=== PATIENT | male | born 1985 | race Caucasian/White ===

== ENCOUNTER 2020-03-27 08:03 | Outpatient (REF) | payer OTHER, SELFPAY ==
--- NOTE | 2020-03-27 08:11 | US_ITS ---
EXAMINATION: US ABDOMEN COMPLETE CLINICAL INFORMATION: Calculus in gallbladder without cholecystitis without obstruction. COMPARISON: Portions of ultrasound 08/28/19 TECHNIQUE: Real-time imaging of the abdominal viscera. FINDINGS: PANCREAS: No suspicious abnormality in the visualized portions of the pancreas. ABDOMINAL AORTA: The proximal, mid, and distal segments are normal in caliber. INFERIOR VENA CAVA: Visualized portions are normal. LIVER: Normal. The liver is normal in size. The liver contour is normal. Parenchymal echogenicity is normal. No focal hepatic lesion. There is no intrahepatic biliary duct dilatation seen. GALLBLADDER: There are gallstones present. A calculus measuring 0.6 cm is documented. There is a calculus near the gallbladder neck with the patient supine. The gallbladder is not dilated. No gallbladder wall thickening. No reported tenderness to transducer pressure over the gallbladder. No pericholecystic fluid. COMMON BILE DUCT: Normal in caliber measuring 0.3 cm in diameter. RIGHT KIDNEY: Normal. No hydronephrosis. No renal calculi or focal parenchymal lesions. The kidney measures 10.6 cm in maximum dimension. LEFT KIDNEY: Normal. No hydronephrosis. No renal calculi or focal parenchymal lesions. The kidney measures 11.5 cm in maximum dimension. SPLEEN: Normal. The spleen measures 9.7 cm in maximum dimension. FREE FLUID: None. US/US abdomen complete IMPRESSION: Cholelithiasis. No biliary dilation. No gallbladder wall thickening, sonographic Copeland's sign or pericholecystic fluid
== END 2020-03-27 08:04 | disposition home or self-care (01) ==
LOC: HO.US 08:03
PROVIDERS: PCP Internal Medicine; Visit Provider Surgery
DX: K80.20 Calculus of gallbladder without cholecystitis without obstruction (principal)
CPT/HCPCS: 76700

== ENCOUNTER 2020-10-18 02:00 | Emergency (ER) | payer OTHER, SELFPAY ==
--- NOTE | ~2020-10-18 | US_ITS ---
EXAMINATION: US ABDOMEN LIMITED CLINICAL INFORMATION: Right upper quadrant pain for 4 hours.. COMPARISON: 03/27/2020 TECHNIQUE: Real-time imaging of the right upper quadrant abdominal viscera. FINDINGS: PANCREAS: Visualized portions unremarkable; tail obscured by interposed bowel gas. LIVER: Normal. The liver is normal in size. The liver contour is normal. Parenchymal echogenicity is normal. No focal hepatic lesion. There is no intrahepatic biliary duct dilatation seen. GALLBLADDER: Normal. The gallbladder is physiologically distended without evidence of stones, sludge, polyps, wall thickening or pericholecystic fluid. COMMON BILE DUCT: Normal in caliber measuring 0.3 cm in diameter. RIGHT KIDNEY: Normal. No hydronephrosis. No renal calculi. There is a 9 mm simple cyst in the upper pole of the kidney. No further follow-up is required. The kidney measures 11.5 cm in maximum dimension. FREE FLUID: None. US/US abdomen limited IMPRESSION: No cholelithiasis or sonographic evidence of cholecystitis.
[2020-10-18 02:02] VITALS: BP 147/78; PULSE 67; RESP 20; TEMP 36.5; O2SAT 97; BMI 23.7
--- NOTE | 2020-10-18 02:38 | ED.ABDPAIN ---
HPI - Abdominal Pain General Chief Complaint: Abdominal Pain Stated Complaint: abdominal pain Time Seen by Provider: 10/18/20 02:24 Source: patient Mode of arrival: ambulatory Limitations: no limitations History of Present Illness HPI narrative: Patient comes to the emergency room complaining of right upper quadrant pain starting tonight. Patient states that he has been told that he has cholelithiasis. Patient had an ultrasound done on March 2020. Patient states that he has not had any further abdominal pain until 1 week ago. Patient ate, started having right upper quadrant pain, patient took Zofran and tramadol and the pain resolved. Then tonight, patient had a similar episode after eating, started having right upper quadrant pain and nausea with no vomiting/diarrhea, patient took tramadol and Zofran but the pain did not subside MD elicited complaint: abdominal pain Related Data Previous Rx's Medication Instructions Recorded hyoscyamine sulfate 0.125 mg PO QID #10 tab 10/18/20 omeprazole 20 mg PO DAILY #10 cap 10/18/20 Allergies Allergy/AdvReac Type Severity Reaction Status Date / Time No Known Allergies Allergy Unverified 02/20/20 17:19 [No Known Allergies*] Review of Systems Review of Systems Constitutional : No Weight loss, No Fever, No Chills, No Night Sweats, No Fatigue, No Malaise ENT/Mouth : No Hearing loss, No Ear Pain, No Nasal Congestion, No Sinus Pain, No Hoarseness, No sore throat, No Rhinorrhea, No Swallowing Difficulty Eyes: No Eye Pain, No Swelling, No Redness, No Foreign Body, No Discharge, No Vision Changes Cardiovascular : No Chest Pain, No SOB, No Dyspnea on Exertion, No Orthopnea, No Edema, No Palpitations Respiratory : No Cough, No Sputum, No Wheezing, No Smoke Exposure, No Dyspnea Gastrointestinal : Complaining of Nausea, No Vomiting, No Diarrhea, No Constipation, complaining of right upper quadrant pain, No Hematochezia, No Melena Genitourinary : no irregular bleeding, No Dysuria, No Urinary Frequency, No Hematuria, No Urinary Incontinence, No Urgency, No Flank Pain, No Urinary Flow Changes, No Hesitancy Musculoskeletal : No joint pain, No Myalgias, No Joint Swelling Skin : No Skin Lesions, No rash Neuro : No Weakness, No Numbness, No Paresthesias, No Loss of Consciousness, No Dizziness, No Headache Psych : No Anxiety/Panic, No Depression, No SI/HI/AH/VH, No Social Issues, Heme/Lymph: No Bruising, No Bleeding,No Lymphadenopathy Endocrine : No Polyuria, No Polydipsia, No Temperature Intolerance Physical Exam Vital Signs: Vital Signs: Last Vital Signs Temp 97.7 F 10/18/20 02:02 Pulse 67 10/18/20 02:02 Resp 15 10/18/20 03:30 BP 147/78 H 10/18/20 02:02 Pulse Ox 97 10/18/20 02:02 Body Mass Index 23.7 Appearance: Alert. Oriented X3. No acute distress. Eyes: Pupils equal, round and reactive to light. ENT: Pharynx normal. Neck: Normal inspection. Neck supple. No lymph nodes noted. No crepitus CVS: Normal heart rate and rhythm. Pulses normal. Normal S1 and S2 Respiratory: No respiratory distress. Breath sounds normal. No Wheezing. No rales Abdomen: Soft, mild tenderness to palpation in the right upper quadrant, negative Copeland sign, No rigidity. No distention Skin: Skin warm and dry. Normal skin color. Normal skin turgor. Extremities: No lower extremity edema. No lower extremity edema. No Lacerations. No Rash Neuro: Oriented X 3. No motor deficit. No sensory deficit. Moving all extermities. No slurred speech. Course Course Course Narrative: I discussed the imaging and the labs with the patient, at this time, acute cholecystitis but not suspected. Patient instructed to follow-up with his primary care physician. Patient was also provided with the phone number for surgery if he continues having right upper quadrant pain. MDM - Abdominal Pain Lab Data Result diagrams: 10/18/20 03:18 10/18/20 03:18 Labs: Lab Results 10/18/20 10/18/20 Range/Units 03:18 03:18 WBC 8.3 (4.8-10.8) X10*3/uL RBC 4.97 (4.60-5.80) X10*6/uL Hgb 14.5 (14.0-18.0) g/dl Hct 41.6 L (42-52) % MCV 83.7 (80-98) fL MCH 29.2 (27.0-33.0) pg MCHC 34.9 (31.0-36.0) g/dl RDW 12.1 (11.0-16.0) % Plt Count 175 (160-400) X10*3/uL MPV 9.5 (9.4-12.4) fL Immature Gran % (Auto) 0.4 (0.0-0.4) % Neut % (Auto) 75.3 H (45-73) % Lymph % (Auto) 16.3 L (20-40) % [place] % (Auto) 6.4 (2-11) % Eos % (Auto) 1.0 (0-4) % Baso % (Auto) 0.6 (0-2) % Lymph # (Auto) 1.4 (1.2-4.9) X10*3/uL [place] # (Auto) 0.5 (0.1-1.2) X10*3/uL Eos # (Auto) 0.1 (0.0-0.4) X10*3/uL Baso # (Auto) 0.1 (0.0-0.2) X10*3/uL Abs Immat Gran (auto) 0.03 (0.00-0.03) X10*3/uL Absolute Neuts (auto) 6.3 (2.0-8.3) X10*3/uL Absolute Nucleated RBC 0.000 (0.0-0.012) X10*3/uL Nucleated RBC % (auto) 0.0 (0.0-0.2) /100WBC Sodium 139 (135-145) mmol/L Potassium 3.6 (3.3-5.1) mmol/L Chloride 106 (96-108) mmol/L Carbon Dioxide 26 (22-29) mmol/L Anion Gap 11 L (12-20) BUN 15 (9-16) mg/dL Creatinine 0.79 (0.5-1.4) mg/dL Estim Creat Clear Calc 140.3 Estimated GFR > 60 Random Glucose 122 H (60-115) mg/dL Calcium 9.6 (8.4-10.2) mg/dL Total Bilirubin 0.4 (0.0-1.0) mg/dL Direct Bilirubin 0.2 (0.0-0.5) mg/dL AST 16 (5-37) U/L ALT 20 (0-40) U/L Alkaline Phosphatase 69 (39-117) U/L Total Protein 6.6 (6.5-8.0) g/dL Albumin 4.5 (3.5-5.0) g/dL Lipase 15 (8-78) U/L Imaging Data Right upper quadrant ultrasound: Radiologist's impression: FINDINGS: PANCREAS: Visualized portions unremarkable; tail obscured by interposed bowel gas. LIVER: Normal. The liver is normal in size. The liver contour is normal. Parenchymal echogenicity is normal. No focal hepatic lesion. There is no intrahepatic biliary duct dilatation seen. GALLBLADDER: Normal. The gallbladder is physiologically distended without evidence of stones, sludge, polyps, wall thickening or pericholecystic fluid. COMMON BILE DUCT: Normal in caliber measuring 0.3 cm in diameter. RIGHT KIDNEY: Normal. No hydronephrosis. No renal calculi. There is a 9 mm simple cyst in the upper pole of the kidney. No further follow-up is required. The kidney measures 11.5 cm in maximum dimension. FREE FLUID: None. US/US abdomen limited IMPRESSION: No cholelithiasis or sonographic evidence of cholecystitis. Discharge Plan Discharge Clinical Impression: Abdominal pain Patient Disposition: Home, Self-Care Instructions: Abdominal Pain (ED) Additional Instructions: Please follow-up with your primary care physician tomorrow. If you have any worsening or new symptoms, please return to the emergency room or call 911 Prescriptions: New hyoscyamine sulfate 0.125 mg tablet 0.125 mg PO QID Qty: 10 RF: 0 omeprazole 20 mg capsule,delayed release(DR/EC) 20 mg PO DAILY Qty: 10 RF: 0 Referrals: Dionicio Bhandari MD [Physician] - 2 days (Recurrent right upper quadrant pain) [facility] Past Medical History Medical History Gallstones Social History Social History Alcohol intake: never Smoking Status: Never smoker Use of substances other than those prescribed or required for medical reasons: No Advance Directives: No Advance Directives Information Provided: No
[2020-10-18 03:22] LABS: Basophils Absolute Auto 0.1 X10*3/uL (0.0-0.2); Basophils Percent Auto 0.6 % (0-2); Eosinophils Absolute Auto 0.1 X10*3/uL (0.0-0.4); Hematocrit 41.6 % (42-52); Hemoglobin 14.5 g/dl (14.0-18.0); Imm Gran Abs Auto 0.03 X10*3/uL (0.00-0.03); Imm Gran Pct Auto 0.4 % (0.0-0.4); Lymphocytes Absolute Auto 1.4 X10*3/uL (1.2-4.9); Lymphocytes Percent Auto 16.3 % (20-40); MANUAL DIFF FLAG NO; Mean Corpuscular HGB Conc 34.9 g/dl (31.0-36.0); Mean Corpuscular Hemoglobin 29.2 pg (27.0-33.0); Mean Corpuscular Volume 83.7 fL (80-98); Mean Platelet Volume 9.5 fL (9.4-12.4); Monocytes Absolute Auto 0.5 X10*3/uL (0.1-1.2); Monocytes Percent Auto 6.4 % (2-11); Neutrophils Absolute Auto 6.3 X10*3/uL (2.0-8.3); Neutrophils Percent Auto 75.3 % (45-73); Platelet Count 175 X10*3/uL (160-400); Red Blood Count 4.97 X10*6/uL (4.60-5.80); Red Cell Distribution Width 12.1 % (11.0-16.0); White Blood Count 8.3 X10*3/uL (4.8-10.8)
[2020-10-18 03:30] VITALS: RESP 15
[2020-10-18] MEDS: Morphine Sulfate 4 MG/ML CARTRIDGE IVPUSH (03:30)
[2020-10-18] MEDS: ondansetron HCL 4 MG/2 ML VIAL IVPUSH (03:30)
[2020-10-18 03:49] LABS: Alanine Aminotransferase 20 U/L (0-40); Albumin Level 4.5 g/dL (3.5-5.0); Alkaline Phosphatase 69 U/L (39-117); Anion Gap 11 (12-20); Aspartate Amino Transferase 16 U/L (5-37); Bilirubin Direct 0.2 mg/dL (0.0-0.5); Bilirubin Total 0.4 mg/dL (0.0-1.0); Blood Urea Nitrogen 15 mg/dL (9-16); Calcium 9.6 mg/dL (8.4-10.2); Carbon Dioxide 26 mmol/L (22-29); Chloride 106 mmol/L (96-108); Creatinine Clr Calc Pharmacy 140.3; Estimated Glomerular Filt Rate > 60; Glucose Random 122 mg/dL (60-115); Lipase 15 U/L (8-78); Potassium 3.6 mmol/L (3.3-5.1); Sodium 139 mmol/L (135-145); Total Protein 6.6 g/dL (6.5-8.0)
[2020-10-18 04:00] VITALS: BP 136/84; PULSE 67; RESP 15; TEMP 36.5; O2SAT 98
[2020-10-18] MEDS: Magnesium Hydrox/Alum Hydrox 30 ML ORAL.SUSP PO (04:16)
[2020-10-18] MEDS: Lidocaine HCl Viscous 2 % 15 ML SOLUTION MUCOUS MEM (04:16)
== END 2020-10-18 04:44 | disposition home or self-care (01) ==
PROVIDERS: Emergency Provider Emergency Medicine; PCP Internal Medicine
DX: R10.11 Right upper quadrant pain (principal); Z79.899 Other long term (current) drug therapy
CPT/HCPCS: 36415; 76705; 80048; 80076; 83690; 85025; 96374; 96375; 99284; J2270; J2405

== ENCOUNTER → 2020-10-22 09:00 | Outpatient (BNVA) | payer OTHER, SELFPAY | PROVIDERS: PCP Internal Medicine; Referring Provider Internal Medicine; Visit Provider Surgery ==

== ENCOUNTER 2021-03-04 16:41 | Outpatient (REF) | payer OTHER, SELFPAY ==
[2021-03-08 04:09] LABS: SARS COV2 IgG Negative (Negative)
== END 2021-03-04 16:42 | disposition home or self-care (01) ==
LOC: HO.LAB 16:41
PROVIDERS: PCP Internal Medicine; Visit Provider Internal Medicine
DX: Z01.84 Encounter for antibody response examination (principal)
CPT/HCPCS: 36415; 86769

== ENCOUNTER 2023-06-02 06:34 | Outpatient (REF) | payer OTHER, SELFPAY ==
[2023-06-02 06:49] LABS: MANUAL DIFF FLAG NO
[2023-06-02 07:09] LABS: Basophils Absolute Auto 0.1 X10*3/uL (0.0-0.2); Basophils Percent Auto 0.9 % (0-2); Eosinophils Absolute Auto 0.2 X10*3/uL (0.0-0.4); Eosinophils Percent Auto 3.9 % (0-4); Hematocrit 43.5 % (42.0-52.0); Hemoglobin 14.6 g/dl (14.0-18.0); Imm Gran Abs Auto 0.01 X10*3/uL (0.00-0.03); Imm Gran Pct Auto 0.2 % (0.0-0.4); Lymphocytes Percent Auto 36.5 % (20-40); Mean Corpuscular HGB Conc 33.6 g/dl (31.0-36.0); Mean Corpuscular Hemoglobin 28.6 pg (27.0-33.0); Mean Corpuscular Volume 85.3 fL (80.0-98.0); Mean Platelet Volume 9.4 fL (9.4-12.4); Monocytes Absolute Auto 0.6 X10*3/uL (0.1-1.2); Monocytes Percent Auto 10.1 % (2-11); Neutrophils Absolute Auto 2.6 x10*3/uL (2.0-8.3); Neutrophils Percent Auto 48.4 % (45-73); Platelet Count 211 X10*3/uL (160-400); Red Cell Distribution Width 12.7 % (11.0-16.0); White Blood Count 5.4 X10*3/uL (4.8-10.8)
[2023-06-02 07:27] LABS: Alanine Aminotransferase 16 U/L (0-40); Albumin Level 4.2 g/dL (3.5-5.0); Alkaline Phosphatase 57 U/L (39-117); Anion Gap 9 (12-20); Aspartate Amino Transferase 17 U/L (5-37); Bilirubin Total 0.5 mg/dL (0.0-1.0); Blood Urea Nitrogen 11 mg/dL (9-16); Calcium 9.3 mg/dL (8.4-10.2); Carbon Dioxide 28 mmol/L (22-29); Chloride 107 mmol/L (96-108); Cholesterol 155 mg/dL (<200); Estimated Glomerular Filt Rate > 60; Glucose Random 97 mg/dL (60-115); HDL Cholesterol 48 mg/dL (>40); LDL Cholesterol Calculated 96 mg/dL (<100); Potassium 4.2 mmol/L (3.3-5.1); Sodium 140 mmol/L (135-145); Total Protein 6.6 g/dL (6.5-8.0); Triglycerides 56 mg/dL (<150)
== END 2023-06-02 06:35 | disposition home or self-care (01) ==
LOC: HO.LAB 06:34
PROVIDERS: PCP Internal Medicine; Visit Provider Internal Medicine
DX: Z00.00 Encounter for general adult medical examination without abnormal findings (principal); Z13.220 Encounter for screening for lipoid disorders
CPT/HCPCS: 36415; 80053; 80061; 85025

== ENCOUNTER 2025-05-13 15:07 | Outpatient (AMB) | payer OTHER, SELFPAY ==
--- NOTE | 2025-05-13 15:11 | MHC.PC.OV ---
Vital Signs 05/13/25 15:19 Height 5 ft 10 in Weight 189 lb BMI 27.1 BP 122/70 Respiration 14 Pulse 71 Pulse Source Pulse Oximeter Temp 97.7 F Temp Source Temporal Artery Scan Pulse Oximetry (%) 98 Oxygen Delivery Method Room Air Intake Visit Reasons: DEREK Croke/ Establish Care/ [employer] Required: No Accompanied by: Self / Same As Patient Allergies Seasonal Allergies Allergy (Mild, Verified 05/13/25 15:16) Unknown Medication List - Last Reconciled 05/13/25 by Freddy Aguillon MD cholecalciferol (vitamin D3) 50 mcg PO DAILY multivitamin 1 tab PO DAILY vitamin K2 90 mcg PO DAILY Tobacco use date assessed: 05/13/25 Dental Screening Dental Screen Date: 05/13/25 Did you have a dental visit in the last 12 months?: Yes Did you have a dental problem in the last 6 months where you did not have access to dental care?: No Was dental information given to patient?: Patient has dentist HPI HPI Comments History of Present Illness Details History of Present Illness The patient is a 40 year old male presenting for a general medical examination as a new patient. He reports he is in good health and has no active medical conditions. He has a history of annual cerumen impaction, which was previously managed by his former physician. He also reports a new, intermittent, and unusual sensation in his knee, which occurs when he runs or plays with his children, though it is not persistently painful. The patient's surgical history includes a vasectomy, cholecystectomy, an ERCP for gallstones prior to his cholecystectomy, and extraction of his upper wisdom teeth. His mother had ovarian cancer, but it is unknown if it was genetic. His father's family has a history of heart disease. There is no family history of colon cancer. He reports occasional cigar smoking and social alcohol use of one to two beers per week. He denies illicit drug use. Medical History: - History of gallstones preceding cholecystectomy - Seasonal allergies - History of cerumen impaction Surgical History: - Vasectomy, elective - Cholecystectomy - ERCP for gallstones - Extraction of upper wisdom teeth Medications: - Vitamin D - Flonase, [id number] Family History: - Mother: History of ovarian cancer, genetic status unknown. - Paternal family: History of heart disease. - Denies family history of diabetes or colon cancer. Social History - Substance Use: He occasionally smokes cigars and consumes 1-2 beers per week. - He denies use of heroin, marijuana, or cocaine. - Housing: He has a stable place to live. - Exercise: He runs and plays with his children. [facility] Medical History (Updated 05/13/25 @ 15:56 by Freddy Aguillon MD) Cerumen impaction Right knee pain Annual physical exam Right upper quadrant pain Gallstones Social History Housing: House Alcohol intake: current Alcohol intake frequency: holidays/special occasions only Patient Tobacco Use Status: Never used Tobacco e-Cigarette/Vaping Use: Never Used service: Yes ([employer]) Current occupational status: employed Current occupation: [employer] Cognitive needs: No Hearing needs: No Vision needs: No Questionnaire PHQ-9 Over the last 2 weeks, how often have you been bothered by any of the following problems? 1. Little interest or pleasure in doing things: not at all 2. Feeling down, depressed, or hopeless: not at all 3. Trouble falling or staying asleep, or sleeping too much: not at all 4. Feeling tired or having little energy: not at all 5. Poor appetite or overeating: not at all 6. Feeling bad about yourself - or that you are a failure or have let yourself or your family down: not at all 7. Trouble concentrating on things, such as reading the newspaper or watching television: not at all 8. Moving or speaking so slowly that other people could have noticed. Or the opposite - being so fidgety or restless that you have been moving around a lot more than usual: not at all 9. Thoughts that you would be better off or of hurting yourself in some way: not at all Total score: 0 Depression Screening Interpretation: Negative Depression Screening Done: Yes 05166 - PHQ-9 Billing: Yes Source: Developed by Drs. Javier Holman, Natalie Dooley, Manav Car and colleagues, with an educational christian from [employer]. Thrive Questionnaire Date Thrive assessed: 05/13/25 I am a: Patient What is your living situation today?: I have a steady place to live Within the past 12 months, did the food you bought not last and you didn't have the money to get more?: Never true Within the past 12 months, did you worry whether your food would run out before you got money to buy more?: Never true Do you have trouble paying for medicines?: No Do you have trouble getting transportation to medical appointments?: No Do you have trouble paying your heating and electricity bill?: No Do you have trouble taking care of your child, family member or friend?: No Do you have trouble with day-to-day activities such as bathing, preparing meals, shopping, managing finances, etc.?: No Are you currently unemployed and looking for a job?: No Are you interested in more education?: No THRIVE Score: 0 AUDIT C Alcohol Use Questionnaire (AUDIT-C) 1. How often do you have a drink containing alcohol?: 2-4 times a month 2. How many drinks containing alcohol do you have on a typical day when you are drinking?: 1 or 2 3. How often do you have six or more drinks on one occasion?: Never Total Score: 2 Score Reviewed/Action Taken: Yes SHAILESH-7 AMB Questionnaire SHAILESH-7 Date SHAILESH - 7 assessed: 05/13/25 Feeling nervous, anxious, or on edge: 0 = Not at all Not being able to stop or control worryin = Not at all Worrying too much about different things: 0 = Not at all Trouble relaxin = Not at all Being so restless that it is hard to sit still: 0 = Not at all Becoming easily annoyed or irritable: 0 = Not at all Feeling afraid as if something awful might happen: 0 = Not at all Total SHAILESH-7 score (0-4 normal; 5-9 mild; 10-14 moderate; 15-21 severe): 0 Source: Developed by Drs. Javier Holman, Natalie Dooley, Manav Car and colleagues, with an educational christian from [employer]. SHAILESH-7 Assessment Billing SHAILESH-7 Assessment Tool: SHAILESH-7 Assessment 32669 Review of Systems Narrative Review of Systems - General: Denies weight loss. - HEENT: Reports annual cerumen buildup and seasonal allergies. - Genitourinary: Reports normal urination. - Gastrointestinal: Reports normal bowel movements. - Musculoskeletal: Reports an intermittent unusual sensation in his knee. - Psychiatric: Reports good mood and denies depression or anxiety. All systems reviewed & are unremarkable except as reviewed in HPI and above Physical exam (Primary Care) Vital Signs: Last Vital Signs Temp 97.7 F 05/13/25 15:19 Pulse 71 05/13/25 15:19 Resp 14 05/13/25 15:19 BP 122/70 05/13/25 15:19 Pulse Ox 98 05/13/25 15:19 Oxygen Delivery Method Room Air 05/13/25 15:19 BMI result Body Mass Index 27.1 Tobacco/Smoking Status: Tobacco use Status Tobacco use date assessed 05/13/25 05/13/25 15:21 Patient Tobacco Use Status Never used Tobacco 05/13/25 15:21 e-Cigarette/Vaping Use Never Used 05/13/25 15:21 PHQ-9: PHQ-9 Score PHQ-9: Total score 0 05/13/25 15:29 Depression Screening Interpretation: Negative Thrive Assessment: Date of Thrive Assessment Date Thrive assessed 05/13/25 05/13/25 15:29 Narrative Physical Exam General: Alert and oriented, Well nourished, No acute distress. Eye: Pupils are equal, round and reactive to light, Intact accommodation, Extraocular movements are intact, Normal conjunctiva, Vision unchanged. HENT: Normocephalic, Atraumatic, Tympanic membranes are clear, Normal hearing, Oral mucosa is moist, No pharyngeal erythema, Ear canals patent but with wax buildup. Respiratory: Lungs CTA bilaterally, No wheeze, Respirations are non-labored. Cardiovascular: Regular rate, Regular rhythm, S1 auscultated, S2 auscultated, No murmur, Good pulses equal in all extremities, Normal peripheral perfusion, No edema. Gastrointestinal: Soft, Non-tender, Non-distended, Normal bowel sounds, No organomegaly. Musculoskeletal: Normal range of motion, Normal strength, No tenderness, No swelling, No deformity, Normal gait, Knee feels weird but no pain on examination. Integumentary: Warm, Dry, [place], Intact. Neurologic: Alert, Oriented, Normal sensory, Normal motor function, No focal defects, Cranial Nerves II-XII are grossly intact, Normal deep tendon reflexes. Psychiatric: Cooperative, Appropriate mood & affect, Normal judgment. Coding Level of Care Code New Pt Prev Care 18-39yr([id number] Diagnoses Chronic pain of right knee M25.561; G89.29 Chronicity: chronic Impacted cerumen, unspecified laterality H61.20 Laterality: unspecified laterality Annual physical exam Z00.00 Additional Codes SHAILESH-7 Assessment Billing - SHAILESH-7 Assessment Tool: SHAILESH-7 Assessment 28356 ([id number]) PHQ-9 - 23276 - PHQ-9 Billing: Yes ([id number]) Assessment & Plan Assessment & Plan (1) Right knee pain: Comment: - The patient reports a new, strange sensation in his knee. - An X-ray of the knee will be obtained to evaluate for any underlying abnormalities. - If concerning findings are present, a referral to an orthopedic surgeon will be made. Code(s): M25.561 - Pain in right knee Category: Medical Qualifiers: Chronicity: chronic Qualified Code(s): M25.561 - Pain in right knee; G89.29 - Other chronic pain (2) Cerumen impaction: Comment: - Patient has a history of annual cerumen buildup. - Physical exam confirms bilaterally impacted cerumen. - Attempted today but only successful on left ear. Will prescribe ear drops and return in one week for a flush. Code(s): H61.20 - Impacted cerumen, unspecified ear Category: Medical Qualifiers: Laterality: unspecified laterality Qualified Code(s): H61.20 - Impacted cerumen, unspecified ear (3) Annual physical exam: Comment: - The patient is a healthy 40-year-old male establishing care. - Baseline lab work will be ordered, including electrolytes, a complete blood count, vitamin D, HIV, syphilis, hepatitis screening, thyroid function, and glucose levels. - He was counseled that colon cancer screening would begin at age 40 if a family history develops. Code(s): Z00.00 - Encounter for general adult medical examination without abnormal findings Category: Medical Plan: Health Maintenance - Immunizations: Patient was strongly recommended to get his COVID and flu shots. - Cancer Screening: Patient was advised that he is not yet at the age for routine cancer screening. - He was informed that colonoscopy screening would typically start at age 40 if there were a family history of colon cancer. - Ordered baseline lab work including electrolytes, blood counts, vitamin D, thyroid and glucose levels, and screening for HIV, syphilis, and hepatitis. Patient was informed and verbally consented to the use of an ambient scribe for clinic note documentation during this visit. Vital signs reviewed. Comprehensive history, review of systems, and physical exam completed. Medications, allergies, and problem list reviewed and updated. Counseling provided on nutrition, regular exercise, sleep hygiene, and moderation of alcohol use. Discussed age-appropriate screenings (mammogram, colonoscopy, Pap, bone density) and immunizations (flu, COVID, shingles, Tdap). Screened for depression, fall risk, and home safety; no current concerns. Discussed stress management, dental and vision care, and importance of ongoing preventive follow-up. Routine labs ordered for metabolic and lipid screening. Patient educated on healthy lifestyle and agrees with the plan. Plan I discussed with the patient that he is overall very healthy and that his vital signs are great. I explained that he is not yet at an age for routine cancer screenings but advised him to inform me if any family history of colon cancer develops, as this would prompt a colonoscopy at age 40. I informed him that I am ordering a comprehensive set of baseline blood work. Regarding his knee symptoms, I recommended an X-ray to investigate further and explained that if any concerning findings are present, I will refer him to an orthopedic surgeon. After finding significant cerumen in his ears, I arranged for them to be flushed in the office today. I strongly recommended he get his COVID and flu shots. I assured him I would call with any abnormal lab or X-ray results and that he should feel free to reach out with any concerns. Orders: Orders Comprehensive Met. Panel Today Z00.00 - Encounter for general adult medical examination without abnormal findings HIV Ab/Ag Today Z00.00 - Encounter for general adult medical examination without abnormal findings XR knee RT 4V Today M25.561 - Pain in right knee Complete Blood Count Auto Diff Today Z00.00 - Encounter for general adult medical examination without abnormal findings Hemoglobin A1c Today Z00.00 - Encounter for general adult medical examination without abnormal findings Hepatitis A,B,C Profile Today Z00.00 - Encounter for general adult medical examination without abnormal findings Lipid Panel Today Z00.00 - Encounter for general adult medical examination without abnormal findings Microalbumin, Random (w Creat) Today Z00.00 - Encounter for general adult medical examination without abnormal findings Syphilis Screen Today Z00.00 - Encounter for general adult medical examination without abnormal findings TSH reflex Free T4 Today Z00.00 - Encounter for general adult medical examination without abnormal findings Vitamin D 25-OH Total Today Z00.00 - Encounter for general adult medical examination without abnormal findings Medications: New carbamide peroxide 6.5% 5 drps otic (ear) right BID 15 mL 0RF 4 days Patient Instructions: - Go to the lab in the hospital across the street to have your blood drawn today. - Go for your knee X-ray today; it is a walk-in service on the floor above the lab. - It is strongly recommended that you get your COVID-19 and flu shots. - Staff will be coming in to flush the wax out of your ears before you leave today. - You will receive a call if there is anything concerning on your lab tests or X-ray. - Please contact the office if you have any questions or concerns. - Return in one year for your next physical exam.
[2025-05-13 15:19] VITALS: BP 122/70; PULSE 71; RESP 14; TEMP 36.5; O2SAT 98; BMI 27.1
== END 2025-05-13 15:54 | disposition home or self-care (01) ==
LOC: HO.HMCHD 15:08
PROVIDERS: PCP Internal Medicine; Visit Provider Student in an Organized Health Care Education/Training Program
DX: Z00.00 Encounter for general adult medical examination without abnormal findings (principal); M25.561 Pain in right knee; G89.29 Other chronic pain; H61.23 Impacted cerumen, bilateral

== ENCOUNTER 2025-05-13 15:07 | Outpatient (REF) | payer OTHER, SELFPAY ==
--- NOTE | ~2025-05-13 | XR_ITS ---
EXAMINATION: XR KNEE, RIGHT CLINICAL INFORMATION: M25.561 - Pain in right knee COMPARISON: None available. TECHNIQUE: Four views of the right knee. FINDINGS: Bone alignment is normal. No fracture or dislocation. Normal joint spaces. Small osteophyte arising from the lateral patella. Small joint effusion. XR/XR knee RT 4V IMPRESSION: Small lateral patellar osteophyte and small joint effusion. Electronically signed by: Leandra Burnham MD 05/13/2025 04:46 PM EST
[2025-05-13 16:15] LABS: MANUAL DIFF FLAG NO
[2025-05-13 17:05] LABS: Hematocrit 46.2 % (42.0-52.0); Hemoglobin 15.6 g/dl (14.0-18.0); Imm Gran Abs Auto 0.05 X10*3/uL (0.00-0.03); Imm Gran Pct Auto 0.5 % (0.0-0.4); Lymphocytes Absolute Auto 2.0 X10*3/uL (1.2-4.9); Mean Corpuscular HGB Conc 33.8 g/dl (31.0-36.0); Mean Corpuscular Hemoglobin 28.3 pg (27.0-33.0); Mean Corpuscular Volume 83.8 fL (80.0-98.0); NRBC Abs Auto 0.000 X10*3/uL (0.0-0.012); NRBC Pct Auto 0.0 /100WBC (0.0-0.2); Platelet Count 234 X10*3/uL (160-400); Red Blood Count 5.51 X10*6/uL (4.60-5.80); White Blood Count 9.4 X10*3/uL (4.8-10.8)
[2025-05-13 18:12] LABS: Alanine Aminotransferase 252 U/L (0-40); Albumin Level 4.7 g/dL (3.5-5.0); Alkaline Phosphatase 78 U/L (39-117); Anion Gap 9 (12-20); Aspartate Amino Transferase 848 U/L (5-37); Blood Urea Nitrogen 17 mg/dL (9-16); Calcium 9.3 mg/dL (8.4-10.2); Carbon Dioxide 29 mmol/L (22-29); Chloride 106 mmol/L (96-108); Cholesterol 155 mg/dL (<200); Estimated Glomerular Filt Rate > 60; HDL Cholesterol 52 mg/dL (>40); Potassium 4.4 mmol/L (3.3-5.1); Sodium 140 mmol/L (135-145); Total Protein 7.2 g/dL (6.5-8.0); Triglycerides 50 mg/dL (<150)
[2025-05-13 18:43] LABS: Microalbum/Creatinine Ratio Ur 4.3 ug/mg cr (<30)
[2025-05-14 05:40] LABS: HBS Num1 13.49 mIU/mL (0-7.99); HBc Num1 0.06 S/CO (0.00-0.79); HBsAGNum1 0.38 S/CO (0.00-0.99); HIV Num 1 0.06 S/CO (0.00-0.99); Hepatitis A Antibody IgM 0.19 Index (0-0.79); Hepatitis B Surface Antigen Negative (Negative); ~HepC Num1 0.10 S/CO (0.00-0.79); ~Hepatitis A Antibody IgM Nonreactive (Nonreactive); ~Hepatitis B Surface Antibody REACTIVE (Nonreactive); ~Hepatitis C Antibody Nonreactive (Nonreactive)
[2025-05-14 06:09] LABS: Syphilis Screen Nonreactive (Nonreactive)
== END 2025-05-13 15:08 | disposition home or self-care (01) ==
LOC: HO.LAB 15:07
PROVIDERS: PCP Student in an Organized Health Care Education/Training Program; Visit Provider Student in an Organized Health Care Education/Training Program
DX: Z00.00 Encounter for general adult medical examination without abnormal findings (principal); M25.561 Pain in right knee; G89.29 Other chronic pain; Z13.31 Encounter for screening for depression; Z13.39 Encounter for screening examination for other mental health and behavioral disorders; Z13.1 Encounter for screening for diabetes mellitus; Z13.6 Encounter for screening for cardiovascular disorders
CPT/HCPCS: 36415; 73564; 80053; 80061; 82043; 82306; 82570; 83036; 84443; 85025; 86704; 86706; 86709; 86780; 86803; 87340; 87389; 96127

== ENCOUNTER → 2025-05-13 16:16 | Outpatient (BNV) | payer OTHER, SELFPAY | PROVIDERS: PCP Student in an Organized Health Care Education/Training Program; Visit Provider Radiology Diagnostic Radiology | DX: M25.461 Effusion, right knee (principal); M25.761 Osteophyte, right knee | CPT/HCPCS: 73564 ==

== ENCOUNTER 2025-05-15 09:07 | Outpatient (REF) | payer OTHER, SELFPAY ==
--- NOTE | ~2025-05-15 | US_ITS ---
EXAMINATION: US ABDOMEN LIMITED CLINICAL INFORMATION: Previous abdominal ultrasound October 2020. COMPARISON: Previous abdominal ultrasound most recent October [address] of the abdomen and pelvis August 2019 TECHNIQUE: Real-time imaging of the right upper quadrant abdominal viscera. FINDINGS: PANCREAS: Not well-visualized due to bowel gas. LIVER: The liver is normal in size. The liver contour is normal. Parenchymal echogenicity is normal. Small cyst in the peripheral right lobe measuring 5 mm. No other focal hepatic lesion. There is no intrahepatic biliary duct dilatation seen. GALLBLADDER: The gallbladder is physiologically distended without evidence of stones, sludge, polyps, wall thickening or pericholecystic fluid. COMMON BILE DUCT: Normal in caliber measuring 0.3 cm in diameter. RIGHT KIDNEY: Small cyst in the midpole measuring 5 mm. No hydronephrosis. No renal calculi. The kidney measures 10.2 cm in maximum dimension. FREE FLUID: None. US/US abdomen limited IMPRESSION: Small liver and right renal cysts. Limited visualization of the pancreas. Otherwise unremarkable exam. Electronically signed by: Leandra Burnham MD 05/16/2025 08:42 AM EST
== END 2025-05-15 09:08 | disposition home or self-care (01) ==
LOC: HO.US 09:07
PROVIDERS: PCP Student in an Organized Health Care Education/Training Program; Visit Provider Student in an Organized Health Care Education/Training Program
DX: R74.8 Abnormal levels of other serum enzymes (principal)
CPT/HCPCS: 76705

== ENCOUNTER → 2025-05-15 09:08 | Outpatient (BNV) | payer OTHER, SELFPAY | PROVIDERS: PCP Student in an Organized Health Care Education/Training Program; Visit Provider Radiology Diagnostic Radiology | DX: N28.1 Cyst of kidney, acquired (principal) | CPT/HCPCS: 76705 ==

== ENCOUNTER 2025-05-16 07:25 | Outpatient (REF) | payer OTHER, SELFPAY ==
[2025-05-16 10:11] LABS: Alanine Aminotransferase 210 U/L (0-40); Albumin Level 4.6 g/dL (3.5-5.0); Alkaline Phosphatase 72 U/L (39-117); Aspartate Amino Transferase 314 U/L (5-37); Total Protein 7.1 g/dL (6.5-8.0)
== END 2025-05-16 07:26 | disposition home or self-care (01) ==
LOC: HO.LAB 07:25
PROVIDERS: PCP Student in an Organized Health Care Education/Training Program; Visit Provider Student in an Organized Health Care Education/Training Program
DX: R74.8 Abnormal levels of other serum enzymes (principal)
CPT/HCPCS: 36415; 80076; 82550; 85652

== ENCOUNTER 2025-05-19 06:33 | Outpatient (REF) | payer OTHER, SELFPAY ==
[2025-05-19 08:52] LABS: Appearance Urine Cloudy; Glucose Urine UA Negative (Negative); PH 6.5 (5.0-9.0); Specific Gravity - Urine 1.010 (1.005-1.025)
[2025-05-19 09:33] LABS: Alanine Aminotransferase 116 U/L (0-40); Albumin Level 4.5 g/dL (3.5-5.0); Alkaline Phosphatase 76 U/L (39-117); Aspartate Amino Transferase 64 U/L (5-37); Total Protein 7.1 g/dL (6.5-8.0)
== END 2025-05-19 06:34 | disposition home or self-care (01) ==
LOC: HO.LAB 06:33
PROVIDERS: PCP Student in an Organized Health Care Education/Training Program; Visit Provider Student in an Organized Health Care Education/Training Program
DX: R74.8 Abnormal levels of other serum enzymes (principal); Z01.84 Encounter for antibody response examination
CPT/HCPCS: 36415; 80076; 81003; 82085; 82550; 86038

== ENCOUNTER 2025-05-22 10:48 | Outpatient (AMB) | payer OTHER, SELFPAY ==
--- NOTE | 2025-05-22 11:00 | A.OFFPC_ITS ---
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 He reports his liver enzymes, which were previously as high as 900, have been decreasing. His previous readings were in the 200s. This elevation was attributed to rhabdomyolysis from intense exercise, after which he could barely move. His Creatine Kinase (CK) levels also subsequently decreased. The patient underwent an ultrasound of his gallbladder, which reportedly showed the organ is still fully present. This was confusing to the patient as he was under the impression he had a cholecystectomy. He planned to contact the previous provider to clarify his surgical history. Regarding his knee, a recent x-ray was performed. He also reports that his right ear is clogged, and he has been using ear drops, which has helped to loosen the impaction. Medical History: - Rhabdomyolysis secondary to intense ex ercise - History of elevated liver enzymes Surgical History: - Possible cholecystectomy, status uncon firmed by patient Medications: - Ear drops, as needed for cerumen impac tion - Vitamins, recently resumed but advised to temporarily discontinue Diagnostic Results: - Labs: Liver enzymes were elevated to 9 00 and have since decreased. - Labs: Creatine kinase (CK) has decreas ed. - Imaging: Gallbladder ultrasound sugges ts the gallbladder is fully present. - Imaging: Knee x-ray shows a small bone spur and a small joint effusion, with n o evidence of fracture. Social History - Exercise: Engages in intense workouts, which recently led to muscle breakdown and rhabdomyolysis. Health Maintenance - Advised to discontinue vitamin supplem ents for 1-2 months. - Plan to follow up in one year. Patient was informed and verbally consented to the use of an ambient scribe for clinic note documentation during this visit. Vital signs reviewed. Comprehensive history, review of systems, and physical exam completed. Medications, allergies, and problem list reviewed and updated. Counseling provided on nutrition, regular exercise, sleep hygiene, and moderation of alcohol use. Discussed age-appropriate screenings (mammogram, colonoscopy, Pap, bone density) and immunizations (flu, COVID, shingles, Tdap). Screened for depression, fall risk, and home safety; no current concerns. Discussed stress management, dental and vision care, and importance of ongoing preventive follow-up. Routine labs ordered for metabolic and lipid screening. Patient educated on healthy lifestyle and agrees with the plan. [facility] Medical History (Updated 05/22/25 @ 11:20 by Freddy Aguillon MD) Elevated CK Elevated liver enzymes Cerumen impaction Right knee pain Annual physical exam Right upper quadrant pain Gallstones Surgical History (Updated 05/22/25 @ 11:20 by Freddy Aguillon MD) History of cholecystectomy Social History Housing: House Alcohol intake: current Alcohol intake frequency: holidays/special occasions only Patient Tobacco Use Status: Never used Tobacco e-Cigarette/Vaping Use: Never Used service: Yes ([employer]) Current occupational status: employed Current occupation: [employer] Cognitive needs: No Hearing needs: No Vision needs: No Questionnaire PHQ-9 Over the last 2 weeks, how often have you been bothered by any of the following problems? 1. Little interest or pleasure in doing things: not at all 2. Feeling down, depressed, or hopeless: not at all 3. Trouble falling or staying asleep, or sleeping too much: not at all 4. Feeling tired or having little energy: not at all 5. Poor appetite or overeating: not at all 6. Feeling bad about yourself - or that you are a failure or have let yourself or your family down: not at all 7. Trouble concentrating on things, such as reading the newspaper or watching television: not at all 8. Moving or speaking so slowly that other people could have noticed. Or the opposite - being so fidgety or restless that you have been moving around a lot more than usual: not at all 9. Thoughts that you would be better off or of hurting yourself in some way: not at all Total score: 0 Depression Screening Interpretation: Negative Depression Screening Done: Yes Source: Developed by Drs. Javier Holman, Manav Plata and colleagues, with an educational christian from [employer] ([employer] Thrive Questionnaire Date Thrive assessed: 05/22/25 I am a: Patient Within the past 12 months, did the food you bought not last and you didn't have the money to get more?: Never true Within the past 12 months, did you worry whether your food would run out before you got money to buy more?: Never true Do you have trouble paying for medicines?: No Do you have trouble getting transportation to medical appointments?: No Do you have trouble paying your heating and electricity bill?: No Do you have trouble taking care of your child, family member or friend?: No Do you have trouble with day-to-day activities such as bathing, preparing meals, shopping, managing finances, etc.?: No Are you currently unemployed and looking for a job?: No Are you interested in more education?: No THRIVE Score: 0 AUDIT C Alcohol Use Questionnaire (AUDIT-C) 1. How often do you have a drink containing alcohol?: Never 3. How often do you have six or more drinks on one occasion?: Never Total Score: 0 SHAILESH-7 AMB Questionnaire SHAILESH-7 Date SHAILESH - 7 assessed: 05/22/25 Feeling nervous, anxious, or on edge: 0 = Not at all Not being able to stop or control worryin = Not at all Worrying too much about different things: 0 = Not at all Trouble relaxin = Not at all Being so restless that it is hard to sit still: 0 = Not at all Becoming easily annoyed or irritable: 0 = Not at all Feeling afraid as if something awful might happen: 0 = Not at all Total SHAILESH-7 score (0-4 normal; 5-9 mild; 10-14 moderate; 15-21 severe): 0 Source: Developed by Natalie Diallo Kurt Kroenke and colleagues, with an educational christian from [employer] ([employer] Review of Systems Narrative Review of Systems - HEENT: Reports a clogged right ear. - Musculoskeletal: Reports recent severe muscle soreness after an intense workout, stating he could barely move. All systems reviewed & are unremarkable except as reviewed in HPI and above Physical exam (Primary Care) Vital Signs: Last Vital Signs Temp 97.5 F 05/22/25 11:01 Pulse 66 05/22/25 11:01 BP 120/70 05/22/25 11:01 Pulse Ox 99 05/22/25 11:01 Oxygen Delivery Method Room Air 05/22/25 11:01 BMI result Body Mass Index 27.5 Tobacco/Smoking Status: Tobacco use Status Tobacco use date assessed 05/13/25 05/22/25 11:02 Patient Tobacco Use Status Never used Tobacco 05/22/25 11:02 e-Cigarette/Vaping Use Never Used 05/22/25 11:02 PHQ-9: PHQ-9 Score PHQ-9: Total score 0 05/22/25 11:08 Depression Screening Interpretation: Negative Thrive Assessment: Date of Thrive Assessment Date Thrive assessed 05/22/25 05/22/25 11:02 Narrative Physical Exam General: +Alert and oriented, Well nourished, No acute distress. Eye: Pupils are equal, round and reactive to light, Intact accommodation, Extraocular movements are intact, Normal conjunctiva, Vision unchanged. HENT: Normocephalic, Atraumatic, Tympanic membranes are clear, Normal hearing, Oral mucosa is moist, No pharyngeal erythema, Right ear canal clogged, Left ear canal clear. Respiratory: Lungs CTA bilaterally, No wheeze, Respirations are non-labored. Cardiovascular: Regular rate, Regular rhythm, S1 auscultated, S2 auscultated, No murmur, Good pulses equal in all extremities, Normal peripheral perfusion, No edema. Gastrointestinal: Soft, Non-tender, Non-distended, Normal bowel sounds, No organomegaly. Musculoskeletal: Normal range of motion, Normal strength, No tenderness, No swelling, No deformity, Normal gait, Small bone spur noted, Mild joint effusion. Integumentary: Warm, Dry, [place], Intact. Neurologic: Alert, Oriented, Normal sensory, Normal motor function, No focal defects, Cranial Nerves II-XII are grossly intact, Normal deep tendon reflexes. Psychiatric: Cooperative, Appropriate mood & affect, Normal judgment. Office Procedures Cerumen Removal From which ear canal was the cerumen removed: bilateral Removal: irrigation, otoscope w/curette and cerumen loop/spoon Notes: patient tolerated procedure well, no complications and ear canal clear [id number] Wax Removal by Spoon/Curette Coding Level of Care Code Est Pt Level 3 (94055) Diagnoses Elevated liver enzymes R74.8 History of cholecystectomy Z90.49 Impacted cerumen, unspecified laterality H61.20 Laterality: unspecified laterality Chronic pain of right knee M25.561; G89.29 Chronicity: chronic CPT Codes Office Procedure - CPT: 29835-Dxe Wax Removal by Spoon/Curette ([id number]) Assessment & Plan Assessment & Plan (1) Elevated liver enzymes: Comment: - The patient's elevated liver enzymes, previously as high as 900, and elevated CK are improving. - These findings were likely secondary to exercise-induced rhabdomyolysis. - The patient was educated on the condition. - No further workup is needed at this time. Code(s): R74.8 - Abnormal levels of other serum enzymes Category: Medical (2) History of cholecystectomy: Comment: - There is confusion regarding the patient's surgical history, as a recent gallbladder ultrasound suggests the organ is present, contrary to his belief. - The patient will follow up with the facility where the procedure was supposedly performed to obtain records and clarify. Code(s): Z90.49 - Acquired absence of other specified parts of digestive tract Category: Surgical (3) Cerumen impaction: Comment: - Otoscopy confirms a clogged right ear. - The patient has been using softening drops. - Plan is for ear lavage today in the office. Code(s): H61.20 - Impacted cerumen, unspecified ear Category: Medical Qualifiers: Laterality: unspecified laterality Qualified Code(s): H61.20 - Impacted cerumen, unspecified ear (4) Right knee pain: Comment: - A recent knee x-ray revealed a small bone spur and a minor joint effusion, consistent with overuse. - There is no fracture. - Reassurance was provided. Code(s): M25.561 - Pain in right knee Category: Medical Qualifiers: Chronicity: chronic Qualified Code(s): M25.561 - Pain in right knee; G89.29 - Other chronic pain Plan: Health Maintenance: - Advised to discontinue vitamin supplements for 1-2 months. - Plan to follow up in one year. Patient was informed and verbally consented to the use of an ambient scribe for clinic note documentation during this visit. Plan I discussed with the patient that his recent lab results, including liver enzymes and CK, have improved significantly, trending down from a high of 900. I explained that this was due to rhabdomyolysis from intense physical exertion. We reviewed his knee x-ray, which showed a small bone spur and minor fluid, consis tent with overuse, and I reassured him that there was no fracture. I also confirmed that his right ear is clogged, and we will proceed with an ear flush today. I advised him to stop taking any vitamin supplements for the next one to two months. We will plan to follow up in one year.
[2025-05-22 11:01] VITALS: BP 120/70; PULSE 66; TEMP 36.4; O2SAT 99; BMI 27.5
== END 2025-05-22 11:46 | disposition home or self-care (01) ==
LOC: HO.HMCHD 10:49
PROVIDERS: PCP Student in an Organized Health Care Education/Training Program; Visit Provider Student in an Organized Health Care Education/Training Program
DX: R74.8 Abnormal levels of other serum enzymes (principal); Z90.49 Acquired absence of other specified parts of digestive tract; H61.23 Impacted cerumen, bilateral; M25.561 Pain in right knee; G89.29 Other chronic pain

== ENCOUNTER → 2025-05-22 10:48 | Outpatient (BNVA) | payer OTHER, SELFPAY | PROVIDERS: PCP Internal Medicine; Visit Provider Student in an Organized Health Care Education/Training Program | DX: H61.21 Impacted cerumen, right ear (principal); M62.82 Rhabdomyolysis; R74.8 Abnormal levels of other serum enzymes; R94.4 Abnormal results of kidney function studies; M25.561 Pain in right knee; G89.29 Other chronic pain; Z13.31 Encounter for screening for depression; Z13.39 Encounter for screening examination for other mental health and behavioral disorders | CPT/HCPCS: 69210; 96127; 99212 ==